=== PATIENT | female | born 1985 | race African-American/Black ===

== ENCOUNTER 2018-09-20 20:46 | Emergency (ER) | payer MEDICAID, OTHER ==
[~2018-09-20] VITALS: Ht 152.4 cm; Wt 52.2 kg
[~2018-09-20 20:46] MED LIST: BACTRIM DS TAB1 EAC1 ORAL; CEPHALEXIN500 MG ORAL; IBUPROFEN600 MG ORAL
[2018-09-20 21:20] VITALS: BP 115/74
--- NOTE | 2018-09-20 21:33 | Emergency Room Report ---
History of Present Illness General Chief Complaint: Neck Pain Source: Patient Present Illness HPI Is a 32-year-old female who is right-hand dominant. She presents with right shoulder pain. Onset was 2 days ago. She was carrying grocery and her door automatically close on her hitting her right shoulder. Since then his been hurting. Unable to abduct it without hurting. Worse with movement. Better with rest. Pain is 8 out of 10. Ibuprofen not helping. No other injury. Allergies: Coded Allergies: CODEINE (Verified Allergy, Unknown, 09/20/18) Patient History Past Medical History: see triage record, old chart reviewed Past Surgical History: none Pertinent Family History: none Social History: Denies: smoking Last Menstrual Period: 09/02 Now: No Immunizations: other Reviewed Nursing Documentation: PMH: Agreed; PSxH: Agreed Nursing Documentation-PMH Past Medical History: No Stated History Review of Systems Eye: Denies: eye pain, blurred vision ENT: Denies: ear pain, nose congestion, throat swelling Respiratory: Denies: cough, shortness of breath Cardiovascular: Denies: chest pain, palpitations Gastrointestinal: Denies: abdominal pain, diarrhea, nausea, vomiting Musculoskeletal: Reports: joint pain; Denies: back pain Skin: Denies: rash Neurological: Denies: headache, numbness Endocrine: Denies: increased thirst, increased urine Hematologic/Lymphatic: Denies: easy bruising All Other Systems: negative except mentioned in HPI Physical Exam Vital Signs Date Time Temp Pulse Resp B/P (MAP) Pulse Ox O2 Delivery O2 Flow Rate FiO2 09/20/18 21:15 75 18 98 Room Air vitals unremarkable Sp02 EP Interpretation: reviewed, normal General Appearance: well appearing, no apparent distress, alert Head: normocephalic, atraumatic Eyes: bilateral eye PERRL, bilateral eye EOMI ENT: hearing grossly normal, normal pharynx Neck: full range of motion, supple, no meningismus Respiratory: chest non-tender, lungs clear, normal breath sounds Cardiovascular #1: regular rate, rhythm, no murmur Gastrointestinal: normal bowel sounds, non tender, no mass, no organomegaly, no bruit, non-distended Musculoskeletal: back normal, gait/station normal, tender - Over anterior right shoulder near the AC joint. No deformity. Sensation normal. Neurologic: alert, oriented x3 Psychiatric: mood/affect normal Skin: warm/dry Medical Decision Making Diagnostic Impression: Primary Impression: Sprain of right shoulder girdle Qualified Codes: S43.91XA - Sprain of unspecified parts of right shoulder girdle, initial encounter ER Course Patient with soft tissue injury. No evidence of any fracture dislocation. Other X-Ray Diagnostic Results Other X-Ray Diagnostic Results : X-Ray ordered: Right shoulder x-rays # of Views/Limited Vs Complete: 3 View Indication: Pain EP Interpretation: Yes Interpretation: no dislocation, no soft tissue swelling, no fractures Impression: No acute disease Electronically Signed by: Chico Bourne MD Last Vital Signs Date Time Temp Pulse Resp B/P (MAP) Pulse Ox O2 Delivery O2 Flow Rate FiO2 09/20/18 21:15 75 18 98 Room Air Status: improved Disposition: HOME, SELF-CARE Condition: Stable Scripts Ibuprofen* (MOTRIN*) 600 Mg Tablet 600 MG ORAL THREE TIMES A DAY, #30 TAB 0 Refills Prov: Chico Bourne MD 09/20/18 Hydrocodone/Acetaminophen 5-325* (HYDROCODONE/ACETAMINOPHEN 5-325*) 1 Each Tablet 1 TAB ORAL Q6H PRN for For Pain, #15 TAB 0 Refills Prov: Chico Bourne MD 09/20/18 Additional Instructions: Ice pack to the area. Follow-up with your doctor in 7 days. Return if worse. Chico Bourne MD Sep 20, 2018 21:33
[2018-09-20] MEDS ORDERED: IBUPROFEN600 MG ORAL (22:17)
[2018-09-20] MEDS ORDERED: HYDROCODON-ACE1 EA15 ORAL (22:17)
[2018-09-20 22:49] VITALS: BP 115/74
--- NOTE | 2018-09-21 10:46 | Diagnostic Imaging Report ---
Indication: Right shoulder pain Findings: 3 views of the right shoulder were obtained. No acute fractures, malalignment, erosions or periostitis are identified. Soft tissues are unremarkable. Impression: Negative for acute injury
== END 2018-09-20 22:47 | disposition home or self-care (01) ==
LOC: EMR 21:10
DX: S43.401A Unspecified sprain of right shoulder joint, initial encounter (principal); W22.8XXA Striking against or struck by other objects, initial encounter; Y92.009 Unspecified place in unspecified non-institutional (private) residence as the place of occurrence of the external cause; Z88.5 Allergy status to narcotic agent
CPT/HCPCS: 99283

== ENCOUNTER 2019-07-01 18:43 | Emergency (ER) | payer MEDICAID ==
[~2019-07-01] VITALS: Ht 152.4 cm; Wt 54.4 kg
[~2019-07-01 18:43] MED LIST changes: +HYDROCODON-ACE1 EA15 ORAL
[2019-07-01 19:15] VITALS: BP 141/83
--- NOTE | 2019-07-01 19:15 | NUR ---
ED Nurse Note: Patient walked in to ER c/o vaginal dc, itching, UTI. AAO x4, VSS at thistime, skin is dry warm to touch.
[2019-07-01] MEDS ORDERED: Lidocaine 1% MPF 10mg/ml 5ml INJ ONE (19:30)
[2019-07-01 20:12] LABS: APPEARANCE,URINE CLEAR; BILIRUBIN, URINE NEGATIVE (NEGATIVE); COLOR,URINE PALE YELLOW; GLUCOSE, URINE (UA) NEGATIVE (NEGATIVE); KETONES,URINE NEGATIVE (NEGATIVE); LEUKOCYTE ESTERASE ,URINE NEGATIVE (NEGATIVE); NITRITE,URINE NEGATIVE (NEGATIVE); PH,URINE 7 (4.5-8.0); PROTEIN,URINE NEGATIVE (NEGATIVE); UROBILINOGEN,URINE NORMAL MG/DL (0.0-1.0)
--- NOTE | 2019-07-01 20:20 | Emergency Room Report ---
History of Present Illness General Chief Complaint: Female Urogenital Problems Source: Patient Present Illness HPI 33-year-old female with no significant past medical history here complaining of 2 days of dysuria and vaginal discharge. Denies urinary frequency, hematuria, fever and chills, suprapubic pain, however complains of spotting. Patient last menstrual period was 5 days ago. Patient describes vaginal discharge having a fishy odor and being clear. Unknown if she is positive for any sexually transmitted diseases and would like her sexual partner to be tested and treated as well. Patient agrees to have prophylactic treatment for both chlamydia and gonorrhea as well as bacterial vaginosis versus trichomoniasis and yeast infection. Denies vaginal trauma, chest pain, shortness of breath, palpitation , and other associated symptoms. Is currently not using any form of control Allergies: Coded Allergies: CODEINE (Verified Allergy, Unknown, 09/20/18) Patient History Past Medical History: see triage record Past Surgical History: unable to obtain Pertinent Family History: none Last Menstrual Period: 8-12 Now: No Immunizations: UTD Reviewed Nursing Documentation: PMH: Agreed; PSxH: Agreed Nursing Documentation-PMH Past Medical History: No Stated History Review of Systems All Other Systems: negative except mentioned in HPI Physical Exam Vital Signs Date Time Temp Pulse Resp B/P (MAP) Pulse Ox O2 Delivery O2 Flow Rate FiO2 07/01/19 18:58 98.8 68 20 141/83 (102) 98 Room Air Sp02 EP Interpretation: reviewed, normal General Appearance: no apparent distress, alert, GCS 15, non-toxic Head: normocephalic, atraumatic Eyes: bilateral eye normal inspection, bilateral eye PERRL ENT: hearing grossly normal, normal pharynx, no angioedema, normal voice Neck: full range of motion, supple/symm/no masses Respiratory: chest non-tender, lungs clear, normal breath sounds, speaking full sentences Cardiovascular #1: regular rate, rhythm, no edema Gastrointestinal: normal bowel sounds, non tender, soft, non-distended, no guarding, no rebound Genitourinary: no CVA tenderness Musculoskeletal: normal inspection, digits/nails normal Neurologic: alert, oriented x3, responsive, motor strength/tone normal, sensory intact, speech normal Psychiatric: judgement/insight normal, memory normal, mood/affect normal, no suicidal/homicidal ideation Skin: no rash Lymphatic: no adenopathy Medical Decision Making PA Attestation All my diagnosis and treatment plans were reviewed ad discussed with my supervising physician Dr. Souza Diagnostic Impression: Primary Impression: Vaginitis Additional Impression: Dysuria ER Course 33-year-old female with no significant past medical history here complaining of 2 days of dysuria and vaginal discharge. Denies urinary frequency, hematuria, fever and chills, suprapubic pain, however complains of spotting. Patient last menstrual period was 5 days ago. Patient describes vaginal discharge having a fishy odor and being clear. Unknown if she is positive for any sexually transmitted diseases and would like her sexual partner to be tested and treated as well. Patient agrees to have prophylactic treatment for both chlamydia and gonorrhea as well as bacterial vaginosis versus trichomoniasis and yeast infection. Denies vaginal trauma, chest pain, shortness of breath, palpitation , and other associated symptoms. Is currently not using any form of control Ddx considered but are not limited to: vaginitis, yeast infection, BV, chlamydia , Gonorrhea, UTI, PID Vital signs: are WNL, pt. is afebrile H&PE are most consistent with : Dysuria, vaginitis ORDERS: UA, GC and chlamydia, urine doxycycline, metronidazole, Diflucan ED INTERVENTIONS: Rocephin IM DISCHARGE: At this time pt. is stable for d/c to home. Will provide printed patient care instructions, and any necessary prescriptions. Care plan and follow up instructions have been discussed with the patient prior to discharge. Patient agrees to prophylactic treatment for chlamydia, gonorrhea, trichomoniasis versus bacterial vaginosis, yeast infection. Patient to follow- up with master cook if symptoms continue. control method advised as well as condom use. Last Vital Signs Date Time Temp Pulse Resp B/P (MAP) Pulse Ox O2 Delivery O2 Flow Rate FiO2 07/01/19 19:15 98.8 78 20 141/83 98 Room Air Disposition: HOME, SELF-CARE Condition: Stable Scripts Fluconazole (FLUCONAZOLE) 150 Mg Tablet 150 MG ORAL ONCE for 1 Day, #1 TAB 0 Refills Prov: Jose Zamudio 07/01/19 Metronidazole* (FLAGYL*) 500 Mg Tablet 500 MG ORAL EVERY 12 HOURS for 7 Days, #14 TAB Prov: Jose Zamudio 07/01/19 Doxycycline Hyclate (DOXYCYCLINE HYCLATE) 100 Mg Tablet 100 MG PO BID for 10 Days, #20 TAB Prov: Jose Zamudio 07/01/19 Referrals: [facility],REFERRING (PCP) Patient Instructions: Dysuria, Vaginitis Additional Instructions: Take medication as directed follow-up with your primary care provider pending results for chlamydia and gonorrhea Jose Zamudio Jul 01, 2019 20:20
[2019-07-01] MEDS ORDERED: FLUCONAZOLE150 MG ORAL (20:24)
[2019-07-01] MEDS ORDERED: DOXYCYCLINE HY100 M6 PO (20:24)
[2019-07-01] MEDS ORDERED: FLAGYL500 MG ORAL (20:24)
[2019-07-01 20:35] VITALS: BP 141/83
--- NOTE | 2019-07-01 21:22 | NUR ---
ED Nurse Note: Pt cleared by health care Provider for discharge. DC instructions/prescription was given and explained to pt and verbalized understanding of teachings. All medical deviecs such as ID band removed. Pt is AAO x4, ambulatory and left with all personal belongings.
== END 2019-07-01 20:35 | disposition home or self-care (01) ==
LOC: EMR 19:07
DX: R30.0 Dysuria (principal); N76.0 Acute vaginitis; Z88.6 Allergy status to analgesic agent
CPT/HCPCS: 81001; 81025; 87491; 87590; 96372; 99283; J0696

== ENCOUNTER 2020-03-18 06:53 | Emergency (ER) | payer SELFPAY ==
[~2020-03-18] VITALS: Ht 152.4 cm; Wt 59.0 kg
[~2020-03-18 06:53] MED LIST changes: +DOXYCYCLINE HY100 M6 PO; +FLAGYL500 MG ORAL; +FLUCONAZOLE150 MG ORAL
[2020-03-18 07:00] VITALS: BP 124/92
--- NOTE | 2020-03-18 07:00 | Emergency Room Report ---
History of Present Illness General Chief Complaint: Lower Back Pain or Injury Source: Patient Present Illness HPI Patient presents by paramedics for complaints of right foot pain Reports that last night she thinks she twisted her foot and ankle she reports that she was drinking last night and does not have a complete recollection of the specific injury Denies any pelvic pain denies any abdominal pain Denies any chest pain or shortness of breath Pain is 8 out of 10 localized to the foot and ankle on the right side Allergies: Coded Allergies: CODEINE (Verified Allergy, Unknown, 09/20/18) Patient History Past Medical History: see triage record Reviewed Nursing Documentation: PMH: Agreed; PSxH: Agreed Review of Systems All Other Systems: negative except mentioned in HPI Physical Exam 98% on RA Sp02 EP Interpretation: reviewed, normal General Appearance: no apparent distress Head: normocephalic, atraumatic Eyes: bilateral eye PERRL, bilateral eye EOMI ENT: hearing grossly normal, EOM grossly intact Neck: full range of motion, supple Respiratory: lungs clear, no respiratory distress, no retraction Cardiovascular #1: regular rate, rhythm Gastrointestinal: non tender, soft Musculoskeletal: swelling - Noted to the right lateral dorsal foot involving the toes as well some discomfort palpable to the lateral ankle no obvious open cuts Neurologic: alert Psychiatric: normal inspection Skin: other - As above swelling involving the lateral dorsal right foot Lymphatic: no adenopathy Procedures Splinting Splinting : Consent: Verbal Location: Right foot Hand-Made Type: plaster Splint: poserior short Pre-Proc Neuro Vasc Exam: normal Post-Proc Neuro Vasc Exam: normal Patient Tolerated: Well Complications: None Medical Decision Making Diagnostic Impression: Primary Impression: Metatarsal bone fracture ER Course Given the patient's history and presentation multiple differentials and consideration Including but not limited to sprain, fracture, dislocation Patient's x-ray does confirm fifth metatarsal fracture Patient has splint applied as noted above there is no evidence of open wound patient has follow-up with her primary physician on Thursday And will follow closely for further orthopedic referral Other X-Ray Diagnostic Results Other X-Ray Diagnostic Results #1: X-Ray ordered: Right foot # of Views/Limited Vs Complete: 3 View Indication: Pain EP Interpretation: Yes Interpretation: no dislocation, other - Fracture base fifth metatarsal, soft tissue swelling Impression: Other - Acute fracture base fifth metatarsal Electronically Signed by: Adama Hyatt DO Other X-Ray Diagnostic Results #2: X-Ray ordered: Right ankle # of Views/Limited Vs Complete: 3 View Indication: Pain EP Interpretation: Yes Interpretation: no dislocation, other - Ankle appears normal however evidence of fifth metatarsal fracture, no soft tissue swelling Impression: Other - aCUTE FIFTH METATARSAL FRACTURE Electronically Signed by: Adama Hyatt DO Status: improved Disposition: HOME, SELF-CARE Condition: Improved Scripts Ibuprofen* (MOTRIN*) 600 Mg Tablet 600 MG ORAL Q6H PRN for FOR PAIN, #20 TAB 0 Refills Prov: Adama Hyatt DO 03/18/20 Additional Instructions: Patient is provided with the discharge instructions notified to follow up with primary doctor in the next 2-3 days otherwise return to the er with any worsening symptoms. Please note that this report is being documented using [employer] technology. This can lead to erroneous entry secondary to incorrect interpretation by the dictating instrument. Adama Hyatt DO March 18, 2020 07:00
--- NOTE | 2020-03-18 07:00 | NUR ---
ED Nurse Note: Pt rosa from home [place] right foot pain. Pt states she is unsure how she hurt her foot but was unable to walk on it upon waking. Right foot noticeably swollen, no redness noted, warm to touch, no abrasions noted. Pt stated that she was drinking last night but does not recall injuring herself. Pt aao x 4. ERMD at bedside. Pt placed on monitor.
--- NOTE | 2020-03-18 07:02 | NUR ---
ED Nurse Note: Medications administered, pt tolerated well. no ss of distress noted. no adverse reactions noted.
--- NOTE | 2020-03-18 07:05 | NUR ---
ED Nurse Note: Received report from Nevaeh RG. Patient resting in bed, no s/s of acute distress. Bed in lowest position.
--- NOTE | 2020-03-18 07:05 | NUR ---
HAND-OFF: Report given to ARCENIO garcia. Pt in stable condition, resting in bed.
[2020-03-18] MEDS ORDERED: IBUPROFEN600 M1 ORAL (08:03)
[2020-03-18 08:20] VITALS: BP 125/87
--- NOTE | 2020-03-18 08:20 | NUR ---
ER DISCHARGE NOTE: Patient is cleared to be discharged per Dr. Hyatt, pt is aox4, on room air, with stable vital signs. pt was given dc and prescription instructions, pt was able to verbalize understanding, pt id band removed. pt is able to ambulate with steady gait, returned demonstration of how to use crutches. pt took all belongings.
--- NOTE | 2020-03-18 09:50 | Diagnostic Imaging Report ---
EXAM: XR Right Foot Complete, 3 or More Views CLINICAL HISTORY: TRAUMA TECHNIQUE: Frontal, lateral and oblique views of the right foot. COMPARISON: No relevant prior studies available. FINDINGS: Bones/joints: Acute nondisplaced transversely oriented fracture of the base of the right fifth metatarsal. No dislocation. Soft tissues: Soft tissue swelling along the lateral aspect. IMPRESSION: Acute nondisplaced transversely oriented fracture of the base of the right fifth metatarsal. No intra-articular extension.
--- NOTE | 2020-03-18 09:51 | Diagnostic Imaging Report ---
EXAM: XR Right Ankle Complete, 3 Views CLINICAL HISTORY: TRAUMA TECHNIQUE: Frontal, lateral and oblique views of the right ankle. COMPARISON: No relevant prior studies available. FINDINGS: Bones/joints: No acute fracture. No dislocation. Soft tissues: Unremarkable. IMPRESSION: No acute right ankle fracture or dislocation. See separate report for radiograph of the right foot for additional findings.
== END 2020-03-18 08:20 | disposition home or self-care (01) ==
LOC: EDBD 06:53 → EMR 07:00
DX: S92.354A Nondisplaced fracture of fifth metatarsal bone, right foot, initial encounter for closed fracture (principal); X50.1XXA Overexertion from prolonged static or awkward postures, initial encounter; Y92.9 Unspecified place or not applicable; Z88.6 Allergy status to analgesic agent
CPT/HCPCS: 29515; 99283

== ENCOUNTER 2020-03-22 14:19 | Emergency (ER) | payer MEDICAID ==
[~2020-03-22] VITALS: Ht 152.4 cm; Wt 55.3 kg
[~2020-03-22 14:19] MED LIST changes: +IBUPROFEN600 M1 ORAL
--- NOTE | 2020-03-22 14:54 | Emergency Room Report ---
History of Present Illness General Chief Complaint: Lower Extremity Injury Source: Patient Present Illness HPI 34-year-old female with no significant past medical history who was here in March 18, 2020 with right fifth metatarsal fracture here reporting that she has no pain as well as has not been able to follow-up with nursing specialist at this point the referral. Is ambulating to the ED with crutches. Also has a splint. Is requesting either an ankle boot or postoperative shoe. Also reports that due to her insurance changes she was unable to get her ibuprofen. Patient reports in the past she has taken tramadol helps her. Denies tingling and numbness, no signs of compartment syndrome noted. Denies Allergies: Coded Allergies: CODEINE (Verified Allergy, Unknown, 09/20/18) COVID-19 Screening Contact w/high risk pt: No Recent Travel to affected area: No Experienced COVID-19 symptoms?: No Patient History Past Medical History: see triage record Past Surgical History: none Pertinent Family History: none Last Menstrual Period: 5-1 Now: No Reviewed Nursing Documentation: PMH: Agreed; PSxH: Agreed Nursing Documentation-PMH Past Medical History: No History, Except For Review of Systems All Other Systems: negative except mentioned in HPI Physical Exam Vital Signs Date Time Temp Pulse Resp B/P (MAP) Pulse Ox O2 Delivery O2 Flow Rate FiO2 03/22/20 14:38 97.9 82 18 111/67 (82) 97 Sp02 EP Interpretation: reviewed, normal General Appearance: no apparent distress, alert, GCS 15, non-toxic Head: normocephalic, atraumatic Eyes: bilateral eye normal inspection, bilateral eye PERRL ENT: hearing grossly normal, normal pharynx, no angioedema, normal voice Neck: full range of motion, supple/symm/no masses Respiratory: chest non-tender, lungs clear, normal breath sounds, speaking full sentences Cardiovascular #1: regular rate, rhythm, no edema Gastrointestinal: non tender, soft Genitourinary: no CVA tenderness Musculoskeletal: back normal, gait/station normal, non-tender, other - Foot fracture in a splint and ambulating with crutches Neurologic: alert, oriented Psychiatric: judgement/insight normal, memory normal, mood/affect normal, no suicidal/homicidal ideation Skin: no rash Lymphatic: no adenopathy Medical Decision Making PA Attestation All diagnoses and treatment plans were reviewed and discussed with my supervising physician Dr. Castellanos Diagnostic Impression: Primary Impression: Other fracture of right foot, sequela ER Course 34-year-old female with no significant past medical history who was here in March 18, 2020 with right fifth metatarsal fracture here reporting that she has no pain as well as has not been able to follow-up with nursing specialist at this point the referral. Is ambulating to the ED with crutches. Also has a splint. Is requesting either an ankle boot or postoperative shoe. Also reports that due to her insurance changes she was unable to get her ibuprofen. Patient reports in the past she has taken tramadol helps her. Denies tingling and numbness, no signs of compartment syndrome noted. Denies Ddx considered but are not limited to: foot fracture, foot sprain, foot contusion, foot strain Vital signs: are WNL, pt. is afebrile H&PE are most consistent with: Right foot fracture second encounter ORDERS: No foot x-ray needed as patient had a foot x-ray done couple days ago. There has been no new injury, few pills of tramadol, ibuprofen ED INTERVENTIONS: Toradol IM, postoperative shoe DISCHARGE: At this time pt. is stable for d/c to home. Will provide printed patient care instructions, and any necessary prescriptions. Care plan and follow up instructions have been discussed with the patient prior to discharge. Gave information regarding orthopedic urgent care for patient to follow-up also follow primary doctor. If worsening symptoms return to the emergency room also gave postoperative shoe Last Vital Signs Date Time Temp Pulse Resp B/P (MAP) Pulse Ox O2 Delivery O2 Flow Rate FiO2 03/22/20 14:38 97.9 82 18 111/67 82 97 Disposition: HOME, SELF-CARE Condition: Stable Scripts Ibuprofen* (MOTRIN*) 600 Mg Tablet 600 MG ORAL Q6H PRN for For Pain, #30 TAB 0 Refills Prov: Jose Zamudio 03/22/20 Tramadol Hcl* (ULTRAM*) 50 Mg Tablet 50 MG ORAL Q8HR PRN for For Pain for 3 Days, #10 TAB 0 Refills Prov: Jose Zamudio 03/22/20 Additional Instructions: Take medication as directed, follow-up with nursing specialist, if worsening symptoms return to the emergency room Jose Zamudio March 22, 2020 14:54
[2020-03-22] MEDS ORDERED: IBUPROFEN600 M1 ORAL (14:55)
[2020-03-22] MEDS ORDERED: TRAMADOL HCL50 MG ORAL (14:55)
[2020-03-22] MEDS ORDERED: Ketorolac 30mg Inj IM ONE (15:00)
[2020-03-22 15:09] VITALS: BP 120/70
== END 2020-03-22 19:00 | disposition home or self-care (01) ==
LOC: EMR 18:13
DX: S92.901S Unspecified fracture of right foot, sequela (principal); X58.XXXS Exposure to other specified factors, sequela; Z88.5 Allergy status to narcotic agent
CPT/HCPCS: J1885; Z7502; 99281; 99282

== ENCOUNTER 2020-07-27 14:50 | Emergency (ER) | payer MEDICAID ==
[~2020-07-27] VITALS: Ht 154.9 cm; Wt 54.4 kg
[~2020-07-27 14:50] MED LIST changes: +TRAMADOL HCL50 MG ORAL
[2020-07-27 15:03] VITALS: BP 120/80
[2020-07-27] MEDS ORDERED: Azithromycin 250mg tab ORAL ONE (15:15)
[2020-07-27] MEDS ORDERED: Lidocaine 1% MPF 10mg/ml 5ml INJ ONE (15:15)
[2020-07-27 16:12] LABS: APPEARANCE,URINE CLEAR; BILIRUBIN, URINE NEGATIVE (NEGATIVE); COLOR,URINE PALE YELLOW; GLUCOSE, URINE (UA) 1+ (NEGATIVE); KETONES,URINE NEGATIVE (NEGATIVE); LEUKOCYTE ESTERASE ,URINE NEGATIVE (NEGATIVE); NITRITE,URINE NEGATIVE (NEGATIVE); PH,URINE 7 (4.5-8.0); PROTEIN,URINE NEGATIVE (NEGATIVE); UROBILINOGEN,URINE NORMAL MG/DL (0.0-1.0)
--- NOTE | 2020-07-27 16:34 | Emergency Room Report ---
History of Present Illness General Chief Complaint: Female Urogenital Problems Present Illness HPI 34-year-old female with no no signal past medical history here complaining of exposure to STD. Patient denies any symptoms at this time, reporting that has no vaginal discharge no urinary frequency or urgency. Reports that her sexual partner has been experiencing penile discharge and patient would like to be treated for chlamydia and gonorrhea. Denies any vaginal pruritus, ulceration, hematuria. Denies . Has not taken medication for symptom relief. Denies being on control using any protection during intercourse. Allergies: Coded Allergies: CODEINE (Verified Allergy, Unknown, 09/20/18) COVID-19 Screening Contact w/high risk pt: No Recent Travel to affected area: No Experienced COVID-19 symptoms?: No COVID-19 Testing performed HOME HEALTH SPEECH THERAPIST: No Patient History Past Medical History: see triage record Past Surgical History: none Pertinent Family History: none Last Menstrual Period: 07/06/2020 Now: No Immunizations: UTD Reviewed Nursing Documentation: PMH: Agreed; PSxH: Agreed Review of Systems All Other Systems: negative except mentioned in HPI Physical Exam Vital Signs Date Time Temp Pulse Resp B/P (MAP) Pulse Ox O2 Delivery O2 Flow Rate FiO2 07/27/20 15:01 98.1 75 20 124/83 (97) 98 Room Air Sp02 EP Interpretation: reviewed, normal General Appearance: no apparent distress, alert, GCS 15, non-toxic Head: normocephalic, atraumatic Eyes: bilateral eye normal inspection, bilateral eye PERRL ENT: hearing grossly normal, normal pharynx, no angioedema, normal voice Neck: full range of motion, supple/symm/no masses Respiratory: chest non-tender, lungs clear, normal breath sounds, speaking full sentences Cardiovascular #1: regular rate, rhythm, no edema Gastrointestinal: normal bowel sounds, non tender, soft, non-distended, no guarding, no rebound Rectal: deferred Genitourinary: no CVA tenderness Musculoskeletal: back normal Neurologic: alert, motor strength/tone normal, oriented x3, sensory intact, responsive, speech normal Psychiatric: judgement/insight normal, memory normal, mood/affect normal, no suicidal/homicidal ideation Skin: no rash Lymphatic: no adenopathy Medical Decision Making PA Attestation All diagnoses and treatment plans were reviewed and discussed with my supervising physician Dr. Bee Diagnostic Impression: Primary Impression: STD exposure Additional Impression: UTI (urinary tract infection) ER Course 34-year-old female with no no signal past medical history here complaining of exposure to STD. Patient denies any symptoms at this time, reporting that has no vaginal discharge no urinary frequency or urgency. Reports that her sexual partner has been experiencing penile discharge and patient would like to be treated for chlamydia and gonorrhea. Denies any vaginal pruritus, ulceration, hematuria. Denies . Has not taken medication for symptom relief. Denies being on control using any protection during intercourse. Ddx considered but are not limited to: vaginitis, yeast infection, BV, chlamydia , Gohnorrea, syphylis, HIV, herpes 1 or 2 Vital signs: are WNL, pt. is afebrile H&PE are most consistent with : STD exposure, UTI ORDERS: UA, urince cx, urine test, Keflex ED INTERVENTIONS: Rocephin, azithromycin, patient significant other has penile discharge and more likely to have either chlamydia or gonorrhea based on presentation and patient is requesting treatment for both. DISCHARGE: At this time pt. is stable for d/c to home. Will provide printed patient care instructions, and any necessary prescriptions. Care plan and follow up instructions have been discussed with the patient prior to discharge. Gave a list of STD clinics for patient to go get tested, patient take medication as directed, if worsening symptoms return to the emergency room. Last Vital Signs Date Time Temp Pulse Resp B/P (MAP) Pulse Ox O2 Delivery O2 Flow Rate FiO2 07/27/20 15:03 97.8 76 18 120/80 98 Room Air Disposition: HOME, SELF-CARE Condition: Stable Scripts Cephalexin* (KEFLEX*) 500 Mg Capsule 500 MG ORAL EVERY 12 HOURS for 7 Days, #14 CAP 0 Refills Prov: Jose Zamudio 07/27/20 Patient Instructions: Chlamydia, Female, [id number], Gonorrhea, Urinary Tract Infection Additional Instructions: Take medication as directed, follow-up primary care provider, if worsening symptoms return to the emergency room Jose Zamudio Jul 27, 2020 16:34
[2020-07-27] MEDS ORDERED: CEPHALEXIN500 MG ORAL (16:35)
[2020-07-27 16:46] VITALS: BP 102/76
== END 2020-07-27 16:43 | disposition home or self-care (01) ==
LOC: EMR 15:05
DX: Z20.2 Contact with and (suspected) exposure to infections with a predominantly sexual mode of transmission (principal); N39.0 Urinary tract infection, site not specified; Z88.6 Allergy status to analgesic agent
CPT/HCPCS: 81003; 81025; 96372; J0696; Q0144; Z7502; 99283

== ENCOUNTER 2020-11-22 18:07 | Emergency (ER) | payer MEDICAID ==
[~2020-11-22] VITALS: Ht 152.4 cm; Wt 54.4 kg
[2020-11-22 18:16] VITALS: BP 115/78
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
[2020-11-22] MEDS ORDERED: Methocarbamol 500mg tab ORAL ONE (19:15)
[2020-11-22] MEDS ORDERED: LIDODERM700 M1 TOPIC (19:23)
[2020-11-22] MEDS ORDERED: TYLENOL EXTRA500 MG ORAL (19:23)
[2020-11-22] MEDS ORDERED: ROBAXIN-750750 MG PO (19:23)
[2020-11-22 19:30] VITALS: BP 115/78
--- NOTE | 2020-11-22 19:30 | NUR ---
ER DISCHARGE NOTE: Patient is cleared to be discharged per ERMD, pt is aox4, on room air, with stable vital signs. pt was given dc and prescription instructions, pt was able to verbalize understanding, pt id band removed. pt is able to ambulate with steady gait. pt took all belongings.
== END 2020-11-22 19:30 | disposition home or self-care (01) ==
LOC: EMR 19:10
DX: S16.1XXA Strain of muscle, fascia and tendon at neck level, initial encounter (principal); M62.830 Muscle spasm of back; M54.5 Low back pain; V43.52XA Car driver injured in collision with other type car in traffic accident, initial encounter; Y92.411 Interstate highway as the place of occurrence of the external cause; Z88.5 Allergy status to narcotic agent
CPT/HCPCS: 99282